=== PATIENT | female | born 1975 | race African-American/Black ===

== ENCOUNTER 2020-01-14 03:23 | Inpatient (IN) | payer OTHER, SELFPAY ==
[~2020-01-14] VITALS: Ht 175.3 cm; Wt 71.2 kg
[2020-01-14 03:29] VITALS: Ht 175.3 cm; Wt 71.2 kg
[2020-01-14 04:32] LABS: BASOPHIL % 0.7 % (0-2)
[2020-01-14 04:33] LABS: PLATELET COUNT 405 x10^3mcL (130-400); RED CELL DISTRIBUTION WIDTH 16.8 % (11.5-14.5)
[2020-01-14 04:45] LABS: CALCIUM 8.7 mg/dL (8.5-10.1); CARBON DIOXIDE 28.7 mmol/L (21-32); CHLORIDE SERUM 106 mmol/L (98-107); CREATININE SERUM 0.9 mg/dL (0.6-1.0); GFR1 > 60 mL/min; GLUCOSE SERUM 88 mg/dL (74-106); POTASSIUM SERUM 4.2 mmol/L (3.5-5.1); SODIUM SERUM 141 mmol/L (136-145)
[2020-01-14 04:46] LABS: ALBUMIN 2.8 g/dL (3.4-5.0); ALKALINE PHOSPHATASE 158 U/L (46-116); ALT/SGPT 27 U/L (14-59); AST/SGOT 37 U/L (15-37); BILIRUBIN TOTAL 0.23 mg/dL (0.20-1.00); TOTAL PROTEIN, SERUM 6.8 g/dL (6.4-8.2)
[2020-01-14 08:35] LABS: microscopic required? NO
[2020-01-14 09:07] LABS: urine erythrocyte NEGATIVE (NEGATIVE)
[2020-01-14 09:54] LABS: AMPHETAMINE QUAL UR NONE DETECTED (See below)
[2020-01-15 07:40] LABS: BASOPHIL % 0.6 % (0-2); PLATELET COUNT 384 x10^3mcL (130-400); RED CELL DISTRIBUTION WIDTH 16.5 % (11.5-14.5)
[2020-01-15 07:47] LABS: CALCIUM 9.3 mg/dL (8.5-10.1); CARBON DIOXIDE 24.4 mmol/L (21-32); CHLORIDE SERUM 105 mmol/L (98-107); CREATININE SERUM 0.7 mg/dL (0.6-1.0); GFR1 > 60 mL/min; GLUCOSE SERUM 90 mg/dL (74-106); POTASSIUM SERUM 4.6 mmol/L (3.5-5.1); SODIUM SERUM 139 mmol/L (136-145)
[2020-01-15 11:52] LABS: C REACTIVE PROTEIN 1.4 mg/dL (<=0.9)
[2020-01-16 09:02] LABS: CALCIUM 8.9 mg/dL (8.5-10.1); CARBON DIOXIDE 26.3 mmol/L (21-32); CHLORIDE SERUM 107 mmol/L (98-107); CREATININE SERUM 0.9 mg/dL (0.6-1.0); GFR1 > 60 mL/min; GLUCOSE SERUM 155 mg/dL (74-106); SODIUM SERUM 142 mmol/L (136-145)
[2020-01-16 09:17] LABS: BASOPHIL % 1.1 % (0-2)
[2020-01-16 09:22] LABS: PLATELET COUNT 447 x10^3mcL (130-400); RED CELL DISTRIBUTION WIDTH 16.8 % (11.5-14.5)
[2020-01-17 09:03] LABS: C REACTIVE PROTEIN 1.1 mg/dL (<=0.9); CARBON DIOXIDE 28.6 mmol/L (21-32); CHLORIDE SERUM 108 mmol/L (98-107); CREATININE SERUM 0.9 mg/dL (0.6-1.0); GFR1 > 60 mL/min; GLUCOSE SERUM 89 mg/dL (74-106); POTASSIUM SERUM 4.4 mmol/L (3.5-5.1); SODIUM SERUM 143 mmol/L (136-145)
[2020-01-17 09:06] LABS: BASOPHIL % 3.6 % (0-2); PLATELET COUNT 423 x10^3mcL (130-400); RED CELL DISTRIBUTION WIDTH 16.4 % (11.5-14.5)
[2020-01-19 05:37] LABS: BASOPHIL % 0.8 % (0-2)
[2020-01-19 05:40] LABS: PLATELET COUNT 441 x10^3mcL (130-400); RED CELL DISTRIBUTION WIDTH 16.3 % (11.5-14.5)
[2020-01-19 05:49] LABS: CALCIUM 9.1 mg/dL (8.5-10.1); CARBON DIOXIDE 28.5 mmol/L (21-32); CHLORIDE SERUM 109 mmol/L (98-107); CREATININE SERUM 0.8 mg/dL (0.6-1.0); GFR1 > 60 mL/min; GLUCOSE SERUM 88 mg/dL (74-106); PHOSPHOROUS 3.9 mg/dL (2.5-4.9); POTASSIUM SERUM 4.6 mmol/L (3.5-5.1); SODIUM SERUM 144 mmol/L (136-145)
[2020-01-19 06:38] VITALS: BP 117/69
== END 2020-01-19 06:38 | disposition home or self-care (01) | DRG 137 ==
LOC: ED 03:23 → MU 01-15 04:22
PROVIDERS: Emergency Medicine; Internal Medicine; ADMIT Family Medicine; ATTEND Family Medicine
DX: U07.1 COVID-19 (principal); E43 Unspecified severe protein-calorie malnutrition; D64.9 Anemia, unspecified; F29 Unspecified psychosis not due to a substance or known physiological condition; F31.89 Other bipolar disorder; Z59.0 Homelessness; Z68.23 Body mass index [BMI] 23.0-23.9, adult
CPT/HCPCS: 85378; G0378; G0480; J1200; J1630; J2060; J2250; J3486; Q0092; U0003-CS